=== PATIENT | male | born 1955 | race Caucasian/White ===

== ENCOUNTER 2021-05-10 08:14 | Inpatient (IN) | payer OTHER ==
[~2021-05-10] VITALS: Ht 177.8 cm; Wt 95.7 kg
--- NOTE | 2021-05-10 08:44 | NUR ---
PT C/O INCREASING SOB AND LOW SPO2 SATS AT HOME. PT RECENTLY DX WITH PE IN LEFT LUNG. HX OF COPD. PT NEW TO THE AREA FROM [place] AND IS UNACCUSTOMED TO ELEVATION. PT DENIES CP RO ABD PAIN. PT HAS HAD DIARRHEA WORSENING OVER THE LAST WEEK.
[2021-05-10 08:58] LABS: BASOPHILS % (AUTO) 1 % (0-1); EOSINOPHILS % (AUTO) 3 % (1-7); LYMPHOCYTES % (AUTO) 17 % (22-44); MEAN CORPUSCULAR HEMOGLOBIN 29.8 pg (27.5-34.5); MEAN CORPUSCULAR HGB CONC 34.1 g/dL (33.2-36.2); MEAN PLATELET VOLUME 8.7 fL (7.4-10.4); MONOCYTES % (AUTO) 7 % (2-9); NEUTROPHILS % (AUTO) 72 % (42-75); PLATELET COUNT 195 x10^3/uL (130-400); RED BLOOD COUNT 3.42 x10^6/uL (4.38-5.82); RED CELL DISTRIBUTION WIDTH 14.9 % (9.4-14.8)
[2021-05-10] MEDS ORDERED: SODIUM CHLORIDE FLUSH 10ML SYR IVF ONE (09:00)
[2021-05-10] MEDS ORDERED: ALBUTEROL/IPRATROPIUM 2.5MG/0.5MG, 3 ML NEB ONE (09:00)
[2021-05-10 09:31] LABS: CHLORIDE 106 mmol/L (98-107)
[2021-05-10 09:32] LABS: ALANINE AMINOTRANSFERASE 19 U/L (12-78); ALBUMIN 2.8 g/dL (3.4-5.0); ALKALINE PHOSPHATASE 76 U/L (45-117); ANION GAP 6 mmol/L (5-15); BILIRUBIN,TOTAL 0.5 mg/dL (0.2-1.0); CREATININE 1.15 mg/dL (0.7-1.3); TOTAL PROTEIN 6.8 g/dL (6.4-8.2)
[2021-05-10 09:33] LABS: TROPONIN I < 0.015 ng/mL (0.000-0.045)
[2021-05-10] MEDS ORDERED: ALBUTEROL/IPRATROPIUM 2.5MG/0.5MG, 3 ML ONE (09:35)
--- NOTE | 2021-05-10 11:06 | NUR ---
REPORT FROM STEVEN WATT.
--- NOTE | 2021-05-10 11:07 | NUR ---
PT OFF UNIT FOR IMAGING.
[2021-05-10] MEDS ORDERED: OMNIPAQUE 350 MG/ML, 75ML BOTTLE ONE (11:15)
[2021-05-10] MEDS ORDERED: PIPERACILLIN/TAZO 3.375 GM in DEXTROSE 5% 50 ML IVPB ONE (11:30)
--- NOTE | 2021-05-10 11:40 | NUR ---
LAB AT BEDSIDE FOR BLOOD CULTURES.
--- NOTE | 2021-05-10 12:33 | NUR ---
iv abx infusing, per okay to give Zoxyn with PCN allergy, pharmacist aware.
--- NOTE | 2021-05-10 12:39 | NUR ---
REPORT TO DAYO WATT.
[2021-05-10 15:24] VITALS: BP 101/68
[2021-05-10] MEDS ORDERED: HYDROcodone/APAP 5/325 TABLET PO PRN (18:00)
[2021-05-10] MEDS ORDERED: ONDANSETRON 2MG/ML, 2ML IVPush PRN (18:00)
[2021-05-10] MEDS ORDERED: BISACODYL 10 MG SUPP PR PRN (18:00)
[2021-05-10] MEDS ORDERED: POLYETHYLENE GLYCOL 17 GM PACKET PO PRN (18:00)
[2021-05-10] MEDS ORDERED: ONDANSETRON ODT 4 MG PO PRN (18:00)
[2021-05-10] MEDS ORDERED: hydrALAzine 20 MG/ML, 1ML IVPush PRN (18:00)
[2021-05-10] MEDS ORDERED: MELATONIN 5 MG TABLET PO PRN (18:00)
[2021-05-10] MEDS ORDERED: ACETAMINOPHEN 325 MG TABLET PO PRN (18:00)
[2021-05-10] MEDS ORDERED: DOCUSATE 100 MG CAPSULE PO PRN (18:00)
[2021-05-10] MEDS ORDERED: LOSA100T14 PO (18:21)
[2021-05-10] MEDS ORDERED: FLUO40CA9 PO (18:21)
[2021-05-10] MEDS ORDERED: PANT40TA6 PO (18:21)
[2021-05-10] MEDS ORDERED: AMLO5TAB4 PO (18:21)
[2021-05-10] MEDS ORDERED: ALPR0.5T PO (18:21)
[2021-05-10] MEDS ORDERED: CLON-275 PO (18:21)
[2021-05-10] MEDS ORDERED: ALBU0.63 NEB (18:21)
[2021-05-10 18:27] VITALS: BP 101/68
[2021-05-10] MEDS ORDERED: ALBUTEROL/IPRATROPIUM 2.5MG/0.5MG, 3 ML NPPB PRN (18:30)
[2021-05-10] MEDS: ENOXAPARIN 100 MG/ML SQ SCH (18:56)
[2021-05-10] MEDS: methylPREDNISolone SOD SUCC 125 MG/2 ML IVPush SCH (18:57)
[2021-05-10] MEDS: ALBUTEROL/IPRATROPIUM 2.5MG/0.5MG, 3 ML NPPB SCH (19:41)
[2021-05-10 20:08] VITALS: BP 96/60
[2021-05-10] MEDS: INSULIN LISPRO 100 UNITS/ML, PEN SQ-INSULIN SCH (20:21)
[2021-05-10] MEDS: PIPERACILLIN/TAZO 3.375 GM in DEXTROSE 5% 50 ML IV SCH (20:34)
[2021-05-10] MEDS: LOSARTAN 50MG TABLET PO SCH (20:35)
[2021-05-11 01:54] VITALS: BP 107/63
[2021-05-11] MEDS: PIPERACILLIN/TAZO 3.375 GM in DEXTROSE 5% 50 ML IV SCH ×4 (02:57→22:38)
[2021-05-11 05:11] LABS: HCT (SEDRATE) 30.1 % (39.2-51.8)
[2021-05-11 05:12] LABS: BASOPHILS % (AUTO) 0 % (0-1); EOSINOPHILS % (AUTO) 0 % (1-7); LYMPHOCYTES % (AUTO) 15 % (22-44); MEAN CORPUSCULAR HEMOGLOBIN 30.2 pg (27.5-34.5); MEAN CORPUSCULAR HGB CONC 34.1 g/dL (33.2-36.2); MONOCYTES % (AUTO) 1 % (2-9); NEUTROPHILS % (AUTO) 84 % (42-75); PLATELET COUNT 224 x10^3/uL (130-400); RED BLOOD COUNT 3.37 x10^6/uL (4.38-5.82); RED CELL DISTRIBUTION WIDTH 14.7 % (9.4-14.8)
[2021-05-11 05:23] LABS: CHLORIDE 105 mmol/L (98-107)
[2021-05-11 05:44] LABS: ALANINE AMINOTRANSFERASE 19 U/L (12-78); ALBUMIN 2.6 g/dL (3.4-5.0); ALKALINE PHOSPHATASE 78 U/L (45-117); ANION GAP 5 mmol/L (5-15); BILIRUBIN,TOTAL 0.4 mg/dL (0.2-1.0); CALCIUM 9.1 mg/dL (8.5-10.1); CHOL/HDL RATIO 6.5; CHOLESTEROL, TOTAL 213 mg/dL (140-239); CREATININE 1.18 mg/dL (0.7-1.3); HDL CHOL % 15 % (26-37); HDL CHOLESTEROL (DIRECT) 33 mg/dL (40-60); LDL CHOLESTEROL,CALCULATED 154 mg/dL (54-169); LDL/HDL RATIO 4.7 (0.5-3.0); TOTAL PROTEIN 6.9 g/dL (6.4-8.2); TRIGLYCERIDES 130 mg/dL (50-200); VLDL CHOLESTEROL 26 mg/dL (0-25)
[2021-05-11] MEDS: methylPREDNISolone SOD SUCC 125 MG/2 ML IVPush SCH ×2 (05:57→16:56)
[2021-05-11] MEDS: ENOXAPARIN 100 MG/ML SQ SCH ×2 (06:09→16:56)
[2021-05-11] MEDS: ALBUTEROL/IPRATROPIUM 2.5MG/0.5MG, 3 ML NPPB SCH ×4 (06:52→21:40)
[2021-05-11] MEDS: INSULIN LISPRO 100 UNITS/ML, PEN SQ-INSULIN SCH ×4 (07:51→20:55)
[2021-05-11 08:00] VITALS: BP 113/70
[2021-05-11] MEDS: LOSARTAN 50MG TABLET PO SCH ×2 (08:00→20:54)
[2021-05-11] MEDS: FLUOXETINE HCL 20 MG CAPSULE PO SCH (08:00)
[2021-05-11] MEDS: AMLODIPINE 5 MG TABLET PO SCH (08:01)
[2021-05-11] MEDS: PANTOPRAZOLE 40MG TABLET PO SCH (08:01)
[2021-05-11 08:39] LABS: MICROSCOPIC AUTO
[2021-05-11] MEDS ORDERED: TIOTROPIUM BROMIDE 18 MCG/INH INH SCH (09:00)
[2021-05-11] MEDS ORDERED: FUROSEMIDE 40 MG/4 ML IV ONE (10:00)
[2021-05-11 10:49] VITALS: BP 112/73
[2021-05-11 13:50] VITALS: BP 105/63
[2021-05-11] MEDS: FUROSEMIDE 40 MG/4 ML IV SCH (16:56)
[2021-05-11 18:51] VITALS: BP 106/67
[2021-05-11 20:39] VITALS: BP 110/66
[2021-05-12 02:00] VITALS: BP 111/72
[2021-05-12 05:28] LABS: ANION GAP 7 mmol/L (5-15); CHLORIDE 103 mmol/L (98-107)
[2021-05-12 05:29] LABS: CREATININE 1.52 mg/dL (0.7-1.3)
[2021-05-12] MEDS: PIPERACILLIN/TAZO 3.375 GM in DEXTROSE 5% 50 ML IV SCH ×4 (05:51→23:38)
[2021-05-12] MEDS: methylPREDNISolone SOD SUCC 125 MG/2 ML IVPush SCH (05:51)
[2021-05-12] MEDS: ALBUTEROL/IPRATROPIUM 2.5MG/0.5MG, 3 ML NPPB SCH ×4 (07:00→19:13)
[2021-05-12 07:18] VITALS: BP 120/70
[2021-05-12] MEDS: FUROSEMIDE 40 MG/4 ML IV SCH (08:13)
[2021-05-12] MEDS: LOSARTAN 50MG TABLET PO SCH ×2 (08:13→21:20)
[2021-05-12] MEDS: RIVAROXABAN 15 MG TABLET PO SCH ×2 (08:13→21:21)
[2021-05-12] MEDS: FLUOXETINE HCL 20 MG CAPSULE PO SCH (08:13)
[2021-05-12] MEDS: AMLODIPINE 5 MG TABLET PO SCH (08:14)
[2021-05-12] MEDS: PANTOPRAZOLE 40MG TABLET PO SCH (08:14)
[2021-05-12] MEDS: INSULIN LISPRO 100 UNITS/ML, PEN SQ-INSULIN SCH ×4 (08:14→20:46)
[2021-05-12 13:02] VITALS: BP 126/62
[2021-05-12] MEDS ORDERED: FUROSEMIDE 40 MG/4 ML IV SCH (17:00)
[2021-05-12 20:00] VITALS: BP 119/71
[2021-05-13 01:52] VITALS: BP 94/53
[2021-05-13] MEDS: PIPERACILLIN/TAZO 3.375 GM in DEXTROSE 5% 50 ML IV SCH ×2 (05:12→11:35)
[2021-05-13] MEDS: ALBUTEROL/IPRATROPIUM 2.5MG/0.5MG, 3 ML NPPB SCH ×2 (06:35→10:06)
[2021-05-13] MEDS: INSULIN LISPRO 100 UNITS/ML, PEN SQ-INSULIN SCH ×2 (07:00→11:35)
[2021-05-13 07:21] LABS: ANION GAP 8 mmol/L (5-15); CHLORIDE 101 mmol/L (98-107); CREATININE 1.48 mg/dL (0.7-1.3)
[2021-05-13] MEDS: FLUOXETINE HCL 20 MG CAPSULE PO SCH (08:17)
[2021-05-13] MEDS: AMLODIPINE 5 MG TABLET PO SCH (08:17)
[2021-05-13] MEDS: PANTOPRAZOLE 40MG TABLET PO SCH (08:17)
[2021-05-13] MEDS: RIVAROXABAN 15 MG TABLET PO SCH (08:17)
[2021-05-13] MEDS: LOSARTAN 50MG TABLET PO SCH (08:17)
[2021-05-13 08:20] VITALS: BP 125/77
[2021-05-13] MEDS ORDERED: PANT40TA6 PO (13:07)
[2021-05-13] MEDS ORDERED: AMLO-150 PO (13:07)
[2021-05-13] MEDS ORDERED: LOSA50TA2 PO (13:07)
[2021-05-13] MEDS ORDERED: RIVA20TA PO (13:13)
[2021-05-13] MEDS ORDERED: RIVA15TA PO (13:13)
[2021-05-13] MEDS ORDERED: PRED10TA PO (13:13)
[2021-05-13] MEDS ORDERED: AMOX1TAB64 PO (13:13)
[2021-05-13 13:59] VITALS: BP 108/69
[2021-06-02] MEDS ORDERED: RIVAROXABAN 20 MG TABLET PO SCH (09:00)
== END 2021-05-13 14:30 | disposition home health service (06) | DRG 196 ==
LOC: ED 10:43 → EDIP 11:51 → 4WST 13:45 → 4EST 05-13 02:30 → DCLOUNGE 05-13 14:09
PROVIDERS: ADMIT Hospitalist; ATTEND Internal Medicine
DX: J84.10 Pulmonary fibrosis, unspecified (principal); J96.21 Acute and chronic respiratory failure with hypoxia; J18.9 Pneumonia, unspecified organism; J44.1 Chronic obstructive pulmonary disease with (acute) exacerbation; N17.9 Acute kidney failure, unspecified; Q21.1 Atrial septal defect; J44.0 Chronic obstructive pulmonary disease with (acute) lower respiratory infection; Z20.822 Contact with and (suspected) exposure to COVID-19; I10 Essential (primary) hypertension; F41.0 Panic disorder [episodic paroxysmal anxiety]; D64.9 Anemia, unspecified; E86.9 Volume depletion, unspecified; G47.33 Obstructive sleep apnea (adult) (pediatric); Z90.49 Acquired absence of other specified parts of digestive tract; Z98.1 Arthrodesis status; Z82.5 Family history of asthma and other chronic lower respiratory diseases; Z80.8 Family history of malignant neoplasm of other organs or systems; Z86.711 Personal history of pulmonary embolism; Z87.01 Personal history of pneumonia (recurrent); Z87.891 Personal history of nicotine dependence; Z79.01 Long term (current) use of anticoagulants; Z91.19 Patient's noncompliance with other medical treatment and regimen; Z88.0 Allergy status to penicillin; Z79.899 Other long term (current) drug therapy
CPT/HCPCS: 36415; 36600; 71045; 71275; 80048; 80053; 80061; 81001; 82728; 82803; 82962; 83036; 83615; 83735; 83880; 84443; 84484; 85025; 85651; 87040; 93005; 93306; 94640; 96374; G0378; J1650; J1940; J2543; Q9967; U0005; J1815; J2930; J7512; U0003